=== PATIENT | female | born 1995 | race African-American/Black ===

== ENCOUNTER 2016-07-30 12:49 | Emergency (ER) | payer MEDICAID ==
[~2016-07-30] VITALS: Ht 170.2 cm; Wt 81.6 kg
[2016-07-30 12:56] VITALS: BP 126/71
== END 2016-07-30 14:26 | disposition home or self-care (01) ==
LOC: ER 12:55
DX: J02.8 Acute pharyngitis due to other specified organisms (principal); B97.89 Other viral agents as the cause of diseases classified elsewhere; H65.91 Unspecified nonsuppurative otitis media, right ear
CPT/HCPCS: 99283; A4606; Z7610

== ENCOUNTER 2017-02-06 10:29 | Emergency (ER) | payer MEDICAID ==
[~2017-02-06] VITALS: Ht 170.2 cm; Wt 86.2 kg
[2017-02-06 10:29] VITALS: BP 116/67
--- NOTE | 2017-02-06 13:15 | NUR ---
CALLED IN THE WAITING ROOM, PATIENT IS NOT AROUND.
--- NOTE | 2017-02-06 13:45 | NUR ---
2ND CALL, PATIENT IS NOT IN THE WAITING ROOM
--- NOTE | 2017-02-06 13:46 | NUR ---
Patient eloped from facility. ER MD notified.
== END 2017-02-06 13:46 | disposition left against medical advice (07) ==
LOC: ER 10:30
DX: Z53.21 Procedure and treatment not carried out due to patient leaving prior to being seen by health care provider (principal)
CPT/HCPCS: A4606; Z7610

== ENCOUNTER 2017-03-17 21:55 | Emergency (ER) | payer MEDICAID ==
[~2017-03-17] VITALS: Ht 170.2 cm; Wt 88.5 kg
--- NOTE | 2017-03-17 22:30 | NUR ---
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 PT AAOX4 NO ACUTE DISTRESS NOTED, RESP EVEN AND UNLABORED. PLACE PT ON CARDIAC MONITORING, CONTINUOUS POX. PENDING ER MD GARCIA.
--- NOTE | 2017-03-17 22:41 | NUR ---
boby de jesus at bedside to hardeep akbar.
[2017-03-17 23:09] LABS: BASOPHILS % (AUTO) 0.4 % (0.0-2.0); EOSINOPHILS # (AUTO) 0.1 /CMM (0.0-0.7); EOSINOPHILS % (AUTO) 0.7 % (0.0-6.0); HEMATOCRIT 37 % (33-45); HEMOGLOBIN 12.5 g/dL (11.5-14.8); LYMPHOCYTES # (AUTO) 2.4 /CMM (0.8-4.8); LYMPHOCYTES % (AUTO) 22.2 % (20.0-44.0); MEAN CORPUSCULAR HEMOGLOBIN 27 PG (26.0-33.0); MEAN CORPUSCULAR HGB CONC 34 g/dl (31.0-36.0); MEAN CORPUSCULAR VOLUME 79 fL (82-100); MONOCYTES # (AUTO) 0.9 /CMM (0.1-1.30); MONOCYTES % (AUTO) 8.9 % (2.0-12.0); NEUTROPHILS # (AUTO) 7.2 /CMM (1.8-8.9); NEUTROPHILS % (AUTO) 67.8 % (43.0-81.0); PLATELET COUNT (AUTO) 271 /CMM (150-450); RDW COEFFICIENT OF VARIATION 13.4 (11.5-15.0); RED BLOOD CELL COUNT(AUTO) 4.71 MIL/uL (4.0-5.2); WHITE BLOOD COUNT (AUTO) 10.6 K/uL (4.3-11.0)
[2017-03-17 23:18] LABS: CALCIUM, SERUM 9.3 mg/dL (8.5-10.1); CARBON DIOXIDE 27 mmol/L (21-32); CHLORIDE 104 mmol/L (98-107); CREATININE 0.6 mg/dL (0.6-1.3); GLUCOSE 88 mg/dL (74-106); SODIUM SERUM 139 mmol/L (136-145); UREA NITROGEN, BLOOD 8 mg/dL (7-18)
[2017-03-17 23:26] LABS: TROPONIN I < 0.017 ng/mL (0.00-0.056)
[2017-03-17 23:38] LABS: D-DIMER 0.24 mg/L(FEU (0.17-0.50); INR 0.96 (0.87-1.13)
[2017-03-18 01:03] VITALS: BP 112/63
--- NOTE | 2017-03-18 01:03 | NUR ---
Patient discharged to home in stable condition. Written and verbal after care instructions given. Patient verbalizes understanding of instruction. ambulatory with a steady gait
== END 2017-03-18 01:04 | disposition home or self-care (01) ==
LOC: ER 21:59
DX: O26.891 Other specified pregnancy related conditions, first trimester (principal); R07.89 Other chest pain; Z3A.12 12 weeks gestation of pregnancy
CPT/HCPCS: 36415; 71010; 80048; 84484; 85025; 85378; 85730; 93005; 99285; A4606; Z7610

== ENCOUNTER 2018-07-06 11:02 | Emergency (ER) | payer BC, MEDICAID ==
[~2018-07-06] VITALS: Ht 165.1 cm; Wt 95.3 kg
[2018-07-06 11:13] VITALS: BP 142/7
== END 2018-07-06 12:16 | disposition left against medical advice (07) ==
LOC: ER 11:02
DX: Z53.21 Procedure and treatment not carried out due to patient leaving prior to being seen by health care provider (principal); H57.89 Other specified disorders of eye and adnexa

== ENCOUNTER 2020-08-19 10:15 | Emergency (ER) | payer BC, MEDICAID ==
[~2020-08-19] VITALS: Ht 165.1 cm; Wt 60.3 kg
[2020-08-19 10:29] VITALS: BP 115/68
[2020-08-19] MEDS ORDERED: SULF1TAB48 PO (10:33)
== END 2020-08-19 11:02 | disposition home or self-care (01) ==
LOC: ER 10:20
DX: L03.031 Cellulitis of right toe (principal); Z79.899 Other long term (current) drug therapy

== ENCOUNTER 2021-06-14 20:22 | Emergency (ER) | payer MEDICAID ==
[~2021-06-14] VITALS: Ht 170.2 cm; Wt 99.8 kg
[~2021-06-14 20:22] MED LIST: SULF1TAB48 PO
[2021-06-14 21:07] VITALS: BP 126/66
[2021-06-14] MEDS ORDERED: NAPR-1164 PO (21:41)
--- NOTE | 2021-06-14 21:58 | NUR ---
Patient discharged to home in stable condition. Written and verbal after care instructions given. Patient verbalizes understanding of instruction.
== END 2021-06-14 21:57 | disposition home or self-care (01) ==
LOC: ER 20:22
DX: S29.011A Strain of muscle and tendon of front wall of thorax, initial encounter (principal); E66.9 Obesity, unspecified; Z68.34 Body mass index [BMI] 34.0-34.9, adult; Z79.1 Long term (current) use of non-steroidal anti-inflammatories (NSAID); Z79.899 Other long term (current) drug therapy

== ENCOUNTER 2022-02-25 20:15 | Emergency (ER) | payer MEDICAID ==
[~2022-02-25] VITALS: Ht 170.2 cm; Wt 99.8 kg
[~2022-02-25 20:15] MED LIST changes: +NAPR-1164 PO
[2022-02-25 20:41] VITALS: BP 107/62
--- NOTE | 2022-02-25 20:46 | NUR ---
DR. IVANA THOMAS AT PT'S BEDSIDE
[2022-02-25] MEDS ORDERED: IBUP-1953 PO (21:00)
[2022-02-25] MEDS ORDERED: PSEU30CA2 PO (21:00)
--- NOTE | 2022-02-25 21:10 | NUR ---
Patient discharged to home in stable condition. Written and verbal after care instructions given. Patient verbalizes understanding of instruction.
== END 2022-02-25 21:10 | disposition home or self-care (01) ==
LOC: ER 20:16
DX: J06.9 Acute upper respiratory infection, unspecified (principal); H83.8X2 Other specified diseases of left inner ear; Z79.899 Other long term (current) drug therapy

== ENCOUNTER 2023-07-09 23:47 | Emergency (ER) | payer MEDICAID ==
[~2023-07-09] VITALS: Ht 170.2 cm; Wt 103.0 kg
[~2023-07-09 23:47] MED LIST changes: +IBUP-1953 PO; +PSEU30CA2 PO
[2023-07-10] MEDS ORDERED: ONDANSETRON HCL/PF 4 MG/2 ML VIAL ONE (00:32)
[2023-07-10] MEDS: ONDANSETRON HCL/PF 4 MG/2 ML VIAL IVP ONE (00:36)
[2023-07-10] MEDS: IV NS 0.9% 1,000 ML BAG IV ONE (00:36)
[2023-07-10 00:55] LABS: BASOPHILS % (AUTO) 0.2 % (0.0-2.0); EOSINOPHILS % (AUTO) 0.3 % (0.0-6.0); HEMATOCRIT 42 % (33-45); HEMOGLOBIN 13.9 g/dL (11.5-14.8); LYMPHOCYTES # (AUTO) 0.8 K/uL (0.8-4.8); LYMPHOCYTES % (AUTO) 5.7 % (20.0-44.0); MEAN CORPUSCULAR HEMOGLOBIN 26 PG (26.0-33.0); MEAN CORPUSCULAR HGB CONC 33 g/dl (31.0-36.0); MEAN CORPUSCULAR VOLUME 78 fL (82-100); MONOCYTES # (AUTO) 0.5 K/uL (0.1-1.30); MONOCYTES % (AUTO) 3.8 % (2.0-12.0); NEUTROPHILS # (AUTO) 12.8 K/uL (1.8-8.9); PLATELET COUNT (AUTO) 316 K/uL (150-450); RED BLOOD CELL COUNT(AUTO) 5.36 MIL/uL (4.0-5.2); RED CELL DISTRIBUTION WIDTH 13.8 % (11.5-15.0); WHITE BLOOD COUNT (AUTO) 14.2 K/uL (4.3-11.0)
[2023-07-10 01:05] LABS: CALCIUM, SERUM 9.6 mg/dL (8.5-10.1); CREATININE 0.8 mg/dL (0.6-1.3); POTASSIUM 3.8 mmol/L (3.5-5.1)
[2023-07-10 01:13] LABS: ALBUMIN 4.1 g/dL (3.4-5.0); BILIRUBIN,DIRECT 0.1 mg/dL (0.0-0.2); BILIRUBIN,TOTAL 0.3 mg/dL (0.2-1.0)
[2023-07-10] MEDS ORDERED: DICYCLOMINE HCL 10 MG CAPSULE PO ONE (01:57)
[2023-07-10] MEDS ORDERED: KETOROLAC TROMETHAMINE 15 MG/ML VIAL ONE (01:57)
[2023-07-10] MEDS ORDERED: LOPERAMIDE HCL (2 MG CAP) 2 MG CAPSULE ONE (01:58)
[2023-07-10 02:14] LABS: PREGNANCY TEST URINE QUAL NEGATIVE (NEGATIVE)
[2023-07-10] MEDS: KETOROLAC TROMETHAMINE 15 MG/ML VIAL IV ONE (02:35)
[2023-07-10] MEDS: DICYCLOMINE HCL 10 MG CAPSULE PO ONE (02:36)
[2023-07-10] MEDS: LOPERAMIDE HCL (2 MG CAP) 2 MG CAPSULE PO ONE (02:37)
[2023-07-10] MEDS ORDERED: METOCLOPRAMIDE HCL 10 MG/2 ML VIAL ONE (02:51)
[2023-07-10] MEDS: METOCLOPRAMIDE HCL 10 MG/2 ML VIAL IV ONE (02:55)
[2023-07-10] MEDS ORDERED: DICY10CA37 PO (03:14)
[2023-07-10] MEDS ORDERED: ONDA4TAB11 PO (03:14)
[2023-07-10] MEDS ORDERED: LOPE2CAP40 PO (03:14)
[2023-07-10 03:36] VITALS: BP 120/75; TEMP 98.6; O2SAT 98
== END 2023-07-10 03:37 | disposition home or self-care (01) ==
LOC: ER 23:53
DX: R11.2 Nausea with vomiting, unspecified (principal); R19.7 Diarrhea, unspecified; T50.995A Adverse effect of other drugs, medicaments and biological substances, initial encounter; R10.2 Pelvic and perineal pain; Z79.899 Other long term (current) drug therapy; Y92.89 Other specified places as the place of occurrence of the external cause
CPT/HCPCS: 99284; 96374; 96375; 96361; 85025; 80048; 83690; 80076; 84703; 36415; J2765; J2405; J7030; J1885; A4223 ×2

== ENCOUNTER 2024-01-08 22:56 | Emergency (ER) | payer BC, MEDICAID ==
[~2024-01-08] VITALS: Ht 170.2 cm; Wt 98.0 kg
[~2024-01-08 22:56] MED LIST changes: +DICY10CA37 PO; +FAMO20TA8 PO; +LOPE2CAP40 PO; +ONDA4TAB11 PO
[2024-01-09 00:18] LABS: APPEARANCE,URINE Slightly Cloudy (CLEAR); BILIRUBIN,URINE Negative (NEGATIVE); BLOOD, URINE Large Ery/uL (NEGATIVE); COLOR,URINE Other (YELLOW); KETONES,URINE Negative (NEGATIVE); LEUKOCYTE ESTERASE ,URINE Small (NEGATIVE); NITRITE, URINE Negative (NEGATIVE); PROTEIN,URINE 100 mg/dl (NEGATIVE); UGLUCOSE Negative (NEGATIVE); UROBILINOGEN,URINE 0.2 EU/dL (0.2)
[2024-01-09 00:24] LABS: PREGNANCY TEST URINE QUAL NEGATIVE (NEGATIVE)
[2024-01-09 00:30] LABS: INR 1.02 (0.91-1.10); PROTHROMBIN TIME 10.5 SECS (9.2-11.1)
[2024-01-09 00:32] LABS: ADD URINE CULTURE YES; BACTERIA,URINE Few /HPF (None Seen); RBC,URINE TOO NUMEROUS TO COUN /HPF (0-2); SQUAMOUS EPITHELIAL CELL,UR Moderate /HPF (None Seen)
[2024-01-09 00:34] LABS: CALCIUM, SERUM 9.3 mg/dL (8.5-10.1); CREATININE 0.7 mg/dL (0.6-1.3); POTASSIUM 4.3 mmol/L (3.5-5.1)
[2024-01-09 00:36] LABS: BASOPHILS % (AUTO) 0.4 % (0.0-2.0); EOSINOPHILS # (AUTO) 0.1 K/uL (0.0-0.7); EOSINOPHILS % (AUTO) 0.7 % (0.0-6.0); HEMATOCRIT 41 % (33-45); HEMOGLOBIN 13.2 g/dL (11.5-14.8); LYMPHOCYTES # (AUTO) 2.4 K/uL (0.8-4.8); LYMPHOCYTES % (AUTO) 21.3 % (20.0-44.0); MEAN CORPUSCULAR HEMOGLOBIN 26 PG (26.0-33.0); MEAN CORPUSCULAR HGB CONC 32 g/dl (31.0-36.0); MEAN CORPUSCULAR VOLUME 80 fL (82-100); MONOCYTES # (AUTO) 0.8 K/uL (0.1-1.30); MONOCYTES % (AUTO) 7.1 % (2.0-12.0); NEUTROPHILS # (AUTO) 8.1 K/uL (1.8-8.9); NEUTROPHILS % (AUTO) 70.5 % (43.0-81.0); PLATELET COUNT (AUTO) 289 K/uL (150-450); RED BLOOD CELL COUNT(AUTO) 5.09 MIL/uL (4.0-5.2); RED CELL DISTRIBUTION WIDTH 13.8 % (11.5-15.0); WHITE BLOOD COUNT (AUTO) 11.4 K/uL (4.3-11.0)
[2024-01-09 00:47] LABS: ALBUMIN 3.9 g/dL (3.4-5.0); BILIRUBIN,TOTAL 0.2 mg/dL (0.2-1.0); TOTAL PROTEIN, SERUM 7.7 g/dL (6.4-8.2)
[2024-01-09 01:10] VITALS: TEMP 98.1
[2024-01-09 02:06] VITALS: BP 124/74; O2SAT 99
== END 2024-01-09 02:07 | disposition home or self-care (01) ==
LOC: ER 01-09 00:14
DX: N93.8 Other specified abnormal uterine and vaginal bleeding (principal); R10.2 Pelvic and perineal pain
CPT/HCPCS: 36415; 76856-TC; 80048-TC; 80076-TC; 81001; 84703-TC; 85025-TC; 85730-TC; 87086-TC